=== PATIENT | male | born 1990 | race Caucasian/White ===

== ENCOUNTER 2017-09-14 12:21 | Emergency (ER) | payer OTHER, BC ==
[2017-09-14] MEDS ORDERED: Sodium Chloride 0.9% 1,000 ML IV ONE (13:54)
[2017-09-14] MEDS ORDERED: Sodium Chloride 0.9% 10 ML Syringe FLUSH PRN (13:54)
--- NOTE | 2017-09-14 13:54 | EDM.PDOC ---
ED HPI GENERAL MEDICAL PROBLEM - General Chief Complaint: Upper Extremity Injury/Pain Stated Complaint: [id number] HYDROLIC LINE BLEW ON HAND Time Seen by Provider: 09/14/17 13:53 Source of Information: Reports: Patient, Family, Old Records, RN, RN Notes Reviewed History Limitations: Reports: No Limitations - History of Present Illness INITIAL COMMENTS - FREE TEXT/NARRATIVE: C/O left hand pain, swelling, increased warmth, and redness. Pt is POD #9 s/p trauma repair of left hand sustained when a hydraulic line exploded in his hand. Pt found to have a fever of 38.6c by triage nurse. Onset: Gradual Duration: Constant, Getting Worse Location: Reports: Upper Extremity, Left Quality: Reports: Ache, Pressure, Throbbing Severity: Severe Improves with: Reports: None Worsens with: Reports: None Treatments ZIPPER C[employer]TER: Reports: Other Medication(s) Left Hand Pain Score (Numeric/FACES): 9 Past Medical History Musculoskeletal History: Reports: Other (See Below) (left hand trauma 09/05/17) - Past Surgical History Musculoskeletal Surgical History: Reports: Other (See Below) (left hand trauma surgery) Social & Family History - Family History Family Medical History: Noncontributory - Living Situation & Occupation Living situation: Reports: Occupation: Employed Review of Systems - Review of Systems Review Of Systems: ROS reveals no pertinent complaints other than HPI. ED EXAM, GENERAL - Physical Exam Exam: See Below Exam Limited By: No Limitations General Appearance: Alert, WD/WN, No Apparent Distress, Other (uncomfortable but non-toxic appearing) Nose: Normal Inspection Throat/Mouth: Normal Inspection, Normal Voice, No Airway Compromise Head: Atraumatic, Normocephalic Neck: Normal Inspection, Supple, Non-Tender, Full Range of Motion Respiratory/Chest: No Respiratory Distress, Lungs Clear, Normal Breath Sounds, No Accessory Muscle Use, Chest Non-Tender Cardiovascular: Regular Rate, Rhythm Peripheral Pulses: 3+: Radial (L), Radial (R) Extremities: Normal Capillary Refill, Redness (left hand acutely tender, erythematous with increased warmth and significant swelling) Neurological: Alert, Oriented, No Motor/Sensory Deficits Psychiatric: Normal Mood Course - Vital Signs Last Recorded V/S: Last Vital Signs Temp 38.6 C H 09/14/17 13:53 Pulse 93 09/14/17 13:53 Resp 20 09/14/17 13:53 BP 157/85 H 09/14/17 13:53 Pulse Ox 95 09/14/17 13:53 - Orders/Labs/Meds Orders: Active Orders 24 hr Category Date Time Status Peripheral IV Care [RC] . DIRECTED Care 09/14/17 13:54 Active CBC WITH AUTO DIFF [HEME] Stat Lab 09/14/17 13:54 Ordered COMPREHENSIVE METABOLIC PN,CMP [CHEM] Stat Lab 09/14/17 13:54 Ordered CULTURE BLOOD [BC] Stat Lab 09/14/17 13:54 Ordered CULTURE BLOOD [BC] Stat Lab 09/14/17 13:54 Ordered LACTIC ACID [CHEM] Stat Lab 09/14/17 13:54 Ordered Sodium Chloride 0.9% [Normal Saline] 1,000 ml Med 09/14/17 13:54 Active IV .BOLUS Sodium Chloride 0.9% [Saline Flush] Med 09/14/17 13:54 Active 10 ml FLUSH ASDIRECTED PRN Blood Culture x2 Reflex Set [OM.PC] Stat Oth 09/14/17 13:54 Ordered Peripheral IV Insertion Adult [OM.PC] Stat Oth 09/14/17 13:54 Ordered Medication Orders Sodium Chloride (Normal Saline) 1,000 mls @ 999 mls/hr IV .BOLUS ONE Stop: 09/14/17 14:54 Sodium Chloride (Saline Flush) 10 ml FLUSH ASDIRECTED PRN PRN Reason: Keep Vein Open Meds: Medications Generic Name Dose Route Start Last Admin Trade Name Freq PRN Reason Stop Dose Admin Sodium Chloride 1,000 mls @ 999 mls/hr 09/14/17 13:54 Normal Saline IV 09/14/17 14:54 .BOLUS ONE Sodium Chloride 10 ml 09/14/17 13:54 Saline Flush FLUSH ASDIRECTED PRN Keep Vein Open Discontinued Medications Generic Name Dose Route Start Last Admin Trade Name Freq PRN Reason Stop Dose Admin Acetaminophen 650 mg 09/14/17 13:55 Tylenol PO 09/14/17 13:56 NOW ONE Hydromorphone HCl 1 mg 09/14/17 13:55 Dilaudid IVPUSH 09/14/17 13:56 ONETIME ONE Ondansetron HCl 4 mg 09/14/17 13:55 Zofran IV 09/14/17 13:56 ONETIME ONE Departure - Departure Time of Disposition: 14:10 Disposition: DC/Tfer to [facility] 02 Condition: Serious Clinical Impression: Infection of left hand Post-operative infection Qualifiers: Encounter type: initial encounter Qualified Code(s): T81.4XXA - Infection following a procedure, initial encounter - Discharge Information Forms: ED Department Discharge, Interfacility Transfer [facility] - My Orders Last 24 Hours: My Active Orders 09/14/17 13:54 Peripheral IV Care [RC] . DIRECTED CBC WITH AUTO DIFF [HEME] Stat COMPREHENSIVE METABOLIC PN,CMP [CHEM] Stat CULTURE BLOOD [BC] Stat CULTURE BLOOD [BC] Stat LACTIC ACID [CHEM] Stat Sodium Chloride 0.9% [Normal Saline] 1,000 ml IV .BOLUS Sodium Chloride 0.9% [Saline Flush] 10 ml FLUSH ASDIRECTED PRN Blood Culture x2 Reflex Set [OM.PC] Stat Peripheral IV Insertion Adult [OM.PC] Stat - Assessment/Plan Last 24 Hours: My Active Orders 09/14/17 13:54 Peripheral IV Care [RC] . DIRECTED CBC WITH AUTO DIFF [HEME] Stat COMPREHENSIVE METABOLIC PN,CMP [CHEM] Stat CULTURE BLOOD [BC] Stat CULTURE BLOOD [BC] Stat LACTIC ACID [CHEM] Stat Sodium Chloride 0.9% [Normal Saline] 1,000 ml IV .BOLUS Sodium Chloride 0.9% [Saline Flush] 10 ml FLUSH ASDIRECTED PRN Blood Culture x2 Reflex Set [OM.PC] Stat Peripheral IV Insertion Adult [OM.PC] Stat
[2017-09-14] MEDS ORDERED: Ondansetron 4 MG/2 ML SDV IV ONE (13:55)
[2017-09-14] MEDS ORDERED: HYDROmorphone 0.5 MG/0.5 ML Syringe IVPUSH ONE (13:55)
[2017-09-14] MEDS ORDERED: Acetaminophen 325 MG Tab PO ONE (13:55)
[2017-09-14] MEDS ORDERED: HYDROmorphone 0.5 MG/0.5 ML Syringe ONE (14:27)
[2017-09-14 14:44] LABS: ANION GAP 13.4; CHLORIDE,CL 100 mmol/L (101-111); SODIUM,NA 137 mmol/L (135-145)
== END 2017-09-14 15:00 ==
LOC: DL.ED 12:21
DX: T81.4XXA Infection following a procedure, initial encounter (principal); L08.9 Local infection of the skin and subcutaneous tissue, unspecified
CPT/HCPCS: 36415; 80053; 83605; 85025; 87040; 96372; 99284; A9270; J1170; J2405; J7030